=== PATIENT | female | born 1990 | race Caucasian/White ===

== ENCOUNTER → 2018-10-21 | Day surgery (SDC) | payer MEDICARE, MEDICAID ==
[2018-10-15 11:15] VITALS: BP 105/68
[~2018-10-21] VITALS: Ht 167.6 cm; Wt 47.6 kg
[~2018-10-21] MED LIST: CLINDAMYCIN150 MG PO; NORCO 5-325 TA1 EACH PO
--- NOTE | ~2018-10-21 | O ---
[place], [place] OPERATIVE NOTE NAME: SHASHA LYLE UNIT #: [id number] ROOM: DOCTOR: JENA MARKS DMD BIRTHDATE: [birth year] DOS: PREOPERATIVE DIAGNOSES: Caries, periodontal disease and anxiety. POSTOPERATIVE DIAGNOSES: Caries, periodontal disease and anxiety. ANESTHESIA: General anesthesia with endotracheal intubation. FLUIDS: Minimal. ESTIMATED BLOOD LOSS: Minimal. COMPLICATIONS: None. CONDITION: To PACU, stable. DESCRIPTION OF PROCEDURE: The patient was brought to the OR and placed in supine position. IV and EKG lines were placed. Endotracheal intubation and general anesthesia was administered. The patient was prepped and draped for oral procedures. Risks and benefits were explained to the patient prior to surgery. Clinical exam and x-rays taken determined caries, generalized periodontal disease. PROCEDURES PERFORMED: Complete extraction of teeth numbers 2, 3, 4, 5, 14, 15, 17, 21, 22, 23, 24, 25, 26, 27, 28. Full thickness flaps in all 4 quadrants with moderate alveoplasty. Sutured with 4-0 Vicryl. Lavaged x 2. Throat pack removed. The patient left the OR in good condition and went to the PACU. JENA MARKS DMD CM:OPRECORD:OPERATIVE NOTE 0 JENA MARKS DMD 10/22/1852 interface
[2018-10-21 08:30] VITALS: BP 123/61
[2018-10-21 11:05] VITALS: BP 108/59
[2018-10-21 11:20] VITALS: BP 101/53
[2018-10-21 11:35] VITALS: BP 102/54
[2018-10-21 11:50] VITALS: BP 100/54
[2018-10-21 12:05] VITALS: BP 94/49
== END | disposition home or self-care (01) ==
LOC: SDC 10-15 10:15
DX: K02.9 Dental caries, unspecified (principal); K05.5 Other periodontal diseases; Z88.1 Allergy status to other antibiotic agents; Z79.899 Other long term (current) drug therapy